=== PATIENT | female | born 1935 | race Caucasian/White ===

== ENCOUNTER 2016-09-24 10:32 | Day surgery (SDC) | payer MEDICARE, OTHER ==
[~2016-09-24] VITALS: Ht 154.9 cm; Wt 54.5 kg
[~2016-09-24 10:32] MED LIST: BENZ100 PO; GABA300C5 PO; L-ME1CAP2 PO; LACT1CAP2 PO; LOMO2.5T PO; LORA2TAB7 PO; MOBI15TA PO; PERC5TAB12 PO; SPIRCAP INH; THERTAB17 PO; ZOCO40TA PO; [UNRECOGNIZED DRUG - OTHER]
[2016-09-24 11:00] VITALS: BP 114/59; PULSE 79; RESP 18; TEMP 97; O2SAT 98
[2016-09-24 11:36] LABS: AUTOMATED NEUTROPHIL # 5.3 TH/MM3 (1.8-7.7); BASOPHIL % 0.2 % (0.0-2.0); EOSINOPHIL # 0.2 TH/MM3 (0-0.4); EOSINOPHIL % 0.8 % (0.0-4.0); HEMO FLAGS AUTO DIFF; LYMPH % 73.9 % (9.0-44.0); LYMPHOCYTE # 17.1 TH/MM3 (1.0-4.8); MEAN CELL VOLUME 103.4 FL (80.0-100.0); MEAN CORPUSCULAR HEMOGLOBIN 33.7 PG (27.0-34.0); MEAN CORPUSCULAR HGB CONC 32.6 % (32.0-36.0); MONO % 1.9 % (0.0-8.0); NEUT % 23.2 % (16.0-70.0); PLATELET COUNT 105 TH/MM3 (150-450); RED BLOOD COUNT 3.58 MIL/MM3 (4.00-5.30); WHITE BLOOD COUNT 23.1 TH/MM3 (4.0-11.0)
[2016-09-24 11:51] LABS: BICARBONATE 27.1 MEQ/L (21.0-32.0); POTASSIUM 4.2 MEQ/L (3.5-5.1)
[2016-09-24] MEDS ORDERED: SODIUM BICARBONATE 100 MEQ in D5W 1000 ML IV SCH (12:00)
[2016-09-24 12:09] LABS: BASOPHILS 1 % (0-2); NEUTROPHIL # MANUAL DIFF 4.6 TH/MM3 (1.8-7.7); POLYS (SEG NEUTROPHILS) 20 % (16-70); WBC DIFF SAMPLE 100
[2016-09-24 12:10] LABS: PLATELET ESTIMATE SMEAR LOW (NORMAL); PLATELET MORPHOLOGY NORMAL (NORMAL); SCAN/DIFF FINAL DIFF MANUAL
[2016-09-24 12:12] LABS: SMUDGE CELLS PRESENT PRESENT
[2016-09-24] MEDS ORDERED: IOHEXOL 350 MG/ML 50 ML BTL (for Cath Lab) OTHER ONE (13:15)
[2016-09-24] MEDS ORDERED: HEPARIN-NS/PF INJ 500 ML ONE (13:21)
[2016-09-24] MEDS ORDERED: MIDAZOLAM HCL 2 MG/2 ML VIAL ONE (13:22)
--- NOTE | 2016-09-24 13:48 | HHI.PR ---
Immediate Post Op Note Procedure Date: Sep 24, 2016 Pre Op Diagnosis: L LE tissue loss, failed distal bypass Post Op Diagnosis: L LE tissue loss, failed distal bypass Surgeon: Surya Reese Director Biology(s): none Procedure: L LE angiogram Findings: 1. Stenosis of PFA (fem-fem outflow) 2. SFA/popliteal occlusion 3. Patent BK pop and AT 4. Occluded PT Additional Information: micropuncture sheath removed in [employer] Complications: none apparent Specimen(s) removed: none Estimated blood loss: 5 mL Anesthesia: MAC Drains: None Patient to: Other (DOCU) Patient Condition: Good Date/Time of Procedure: SEE SURGICAL CARE RECORD Surya Reese MD Sep 24, 2016 13:47
--- NOTE | 2016-09-24 15:49 | PD.VS.PN ---
Subjective Subjective/Hospital Course Ms. Chavez underwent diagnostic L LE angiogram today. She is recovering well and resting comfortably. No pain or complaints. Objective Vitals/I&O Date Time Temp Pulse Resp B/P Pulse Ox O2 Delivery O2 Flow Rate FiO2 09/24/16 11:00 97.0 79 18 114/59 98 Physical Exam R groin (puncture site) ok. L LE ok. Laboratory Laboratory Tests Test 09/24/16 11:10 White Blood Count 23.1 Red Blood Count 3.58 Hemoglobin 12.0 Hematocrit 37.0 Mean Corpuscular Volume 103.4 Mean Corpuscular Hemoglobin 33.7 Mean Corpuscular Hemoglobin 32.6 Concent Red Cell Distribution Width 14.0 Platelet Count 105 Mean Platelet Volume 7.1 Neutrophils (%) (Auto) 23.2 Lymphocytes (%) (Auto) 73.9 Monocytes (%) (Auto) 1.9 Eosinophils (%) (Auto) 0.8 Basophils (%) (Auto) 0.2 Neutrophils # (Auto) 5.3 Lymphocytes # (Auto) 17.1 Monocytes # (Auto) 0.4 Eosinophils # (Auto) 0.2 Basophils # (Auto) 0.0 CBC Comment AUTO DIFF Differential Total Cells 100 Counted Neutrophils % (Manual) 20 Lymphocytes % 78 Monocytes % 1 Basophils % 1 Neutrophils # (Manual) 4.6 Differential Comment FINAL DIFF MANUAL Smudge Cells PRESENT Platelet Estimate LOW Platelet Morphology Comment NORMAL Sodium Level 139 Potassium Level 4.2 Chloride Level 104 Carbon Dioxide Level 27.1 Anion Gap 8 Blood Urea Nitrogen 24 Creatinine 1.28 Estimat Glomerular Filtration 40 Rate Random Glucose 101 Calcium Level 9.5 Assessment and Plan Plan 1. D/C home after 3 hour of bed rest 2. I talked with the patient and her daughter about the next step, which will be a LEFT groin reconstruction and L LE bypass (fem-AT), likely with cryo. They will think about timing and let me know. Surya Reese MD Sep 24, 2016 15:49
--- NOTE | 2016-09-28 10:21 | MP ---
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 PROCEDURE Left lower extremity angiogram. ATTENDING SURGEON Surya Reese ANESTHESIA Local with sedation. INDICATION Ms. Chavez is an 81-year-old woman who has a history of left lower extremity bypasses, both of which have failed. She also has a history of an aortobifemoral bypass graft to the left limb which has failed and so she has a [id number] fem-fem bypass. She has a wound on the left leg that is not healing and she is taken to the operating room for angiographic evaluation. There was no prior catheterization available for my review. DESCRIPTION OF PROCEDURE Informed consent was obtained from the patient. She was taken to the operating room and placed supine on the operating table. An appropriate timeout was taken to ensure the patient's identity, operative site and planned procedure. The administration of antibiotics was not necessary as this was a clean procedure without planned implantation of any foreign object. Everyone in the room agreed with the timeout and we proceeded. Her bilateral groins were prepped and draped. The right groin was anesthetized with 1% lidocaine. A 21-gauge micropuncture needle was used to access the proximal aspect of the [id number] fem-fem bypass. This was exchanged using Seldinger technique for a micropuncture sheath through which a left lower extremity angiogram was obtained. The micropuncture sheath was removed and pressure was held for hemostasis. There were no complications. I was present and scrubbed for the entire procedure. INTERPRETATION OF IMAGES The distal aspect of the fem-fem bypass was patent. There was a proximal stenosis into the profunda. The SFA and popliteal arteries were occluded. Profunda-based collaterals reconstituted the below knee popliteal artery and the anterior tibial artery is a dominant runoff to the foot. The peroneal artery is patent. The posterior tibial artery is occluded. Both bypasses appear to be occluded. Surya Reese MD RJF/BT /1:53 PM /9:57 AM AMPARO
[2016-10-28] MEDS ORDERED: CILO100T PO (15:08)
== END 2016-09-24 17:15 | disposition home or self-care (01) ==
LOC: HDOC 10:32 → HDIC 10:33 → HDOC 17:15
PROVIDERS: ATTEND Surgery
DX: I70.212 Atherosclerosis of native arteries of extremities with intermittent claudication, left leg (principal); J44.9 Chronic obstructive pulmonary disease, unspecified; E78.5 Hyperlipidemia, unspecified; Z79.01 Long term (current) use of anticoagulants
CPT/HCPCS: 36245; 75710; 80048; 85007; 85027; J1644; J2250; J3010; Q9967